=== PATIENT | female | born 1940 | race African-American/Black ===

== ENCOUNTER 2017-08-01 09:07 | Outpatient (CLI) | payer MEDICARE, BC ==
--- NOTE | 2017-08-01 11:47 | MRI ---
MRI LUMBAR SPINE WITHOUT CONTRAST: INDICATIONS: Left hip and back pain for one month. COMPARISON: None. FINDINGS: There is a benign appearing hemangioma within the left posterolateral aspect of L3. There is slight grade 1 anterolisthesis of L4 on L5 and of L3 on L4. The conus is seen to terminate at approximately L1. The visualized retroperitoneum is within normal limits. There are small T2 hyperintensities involvin g both kidneys, likely reflective of small cysts. No acute fracture is evident. There is a small, 7 mm, T1 hypointense, heterogeneous, T2, oval lesion involving the anterior-superior aspect of L5 with no correlating CT abnormality on the CT of the [facility] st and abdomen dated 10/21/2011. At L5-S1 level, there is no appreciable central canal or neural foraminal narrowing. At L4-L5, there is a broad-based bulge, ligamentum flavum hypertrophy, and facet hypertrophy inducing mild central canal narrowing with moderate left and mild right neural foraminal narrowing. At L3-L4, there is a broad-based bulge with ligamentum flavum hypertrophy and facet joint degenerativ e change causing mild central canal narrowing with mild bilateral neural foraminal narrowing. At L2-L3, there is a broad-based bulge with facet hypertrophy inducing mild bilateral neural foramina l narrowing. At L1-L2, there is no appreciable central canal or neural foraminal narrowing. At T12-L1, there is no appreciable central canal or neural foraminal narrowing. IMPRESSION: 1. Multilevel spondylosis of the lumbar spine with mild central canal narrowing seen at L3-L4 and at L4-L5. 2. Neural foraminal narrowing seen at L2-L3 through L4-L5 as above. 3. Small, nonspecific T1 hypointense lesion involving the anterior-superior aspect of L5. This bree ures 7 mm in size. No definite corresponding CT abnormality was seen within this region on compariso n CT in 2011. This may reflect slightly atypical bony hemangioma. Metastatic disease is felt to be less likely, as the patient has no prior history of malignancy. As a conservative measure, would rec ommend a follow-up examination in 1 to 2 months, to document stability. 4. Benign appearing hemangioma within the posterolateral aspect of L3. 5. Small bilateral renal cysts. POS: [facility]
== END 2017-08-01 09:08 | disposition home or self-care (01) ==
LOC: MRI 09:07
PROVIDERS: ATTEND Orthopaedic Surgery
DX: M47.26 Other spondylosis with radiculopathy, lumbar region (principal); M48.061 Spinal stenosis, lumbar region without neurogenic claudication; D18.09 Hemangioma of other sites; N28.1 Cyst of kidney, acquired
CPT/HCPCS: 72148

== ENCOUNTER 2017-08-01 14:24 | Outpatient (CLI) | payer MEDICARE, BC | END 2017-08-01 14:25 | disposition home or self-care (01) | LOC: BICMAMMO 14:24 | PROVIDERS: ATTEND Family Medicine | DX: Z12.31 Encounter for screening mammogram for malignant neoplasm of breast (principal) | CPT/HCPCS: 77063; 77067 ==

== ENCOUNTER 2018-09-07 10:28 | Outpatient (CLI) | payer MEDICARE, BC | END 2018-09-07 10:29 | disposition home or self-care (01) | LOC: BICMAMMO 10:28 | PROVIDERS: ATTEND Family Medicine | DX: Z12.31 Encounter for screening mammogram for malignant neoplasm of breast (principal); R92.1 Mammographic calcification found on diagnostic imaging of breast | CPT/HCPCS: 77063; 77067 ==

== ENCOUNTER 2018-09-20 10:03 | Outpatient (CLI) | payer MEDICARE, BC ==
--- NOTE | 2018-09-20 11:21 | ULT ---
ULTRASOUND RETROPERITONEUM COMPLETE: (RENAL) DATE: 09/20/2018. HISTORY: Chronic kidney disease, N18.2, stage 2. FINDINGS: The right kidney measures 9 x 6 x 7 cm. The left kidney measures 9 x 4.5 x 5.5 cm. Both kidneys hav e normal cortical thickness and normal cortical echogenicity. There is no hydronephrosis. The urina ry bladder is almost empty and therefore cannot be evaluated. There is suboptimal detailed visualiza tion of the renal parenchyma, especially on the right. Previous ultrasound of 11/10/2016 demonstrated some small parenchymal renal cysts, which are difficult to identify on the current study. IMPRESSION: 1) No hydronephrosis. Probably no major interval change since 11/10/2016. 2) Empty bladder. jn [] POS: [facility]
== END 2018-09-20 10:04 | disposition home or self-care (01) ==
LOC: BICULT 10:03
PROVIDERS: ATTEND Internal Medicine Nephrology
DX: N18.2 Chronic kidney disease, stage 2 (mild) (principal)
CPT/HCPCS: 76770

== ENCOUNTER 2019-05-14 08:37 | Outpatient (CLI) | payer MEDICARE, BC ==
--- NOTE | 2019-05-14 09:53 | ULT ---
Pelvic sonogram transabdominal imaging HISTORY: Pelvic pain. FINDINGS: Urinary bladder is incompletely distended. Uterus has a heterogeneous echotexture and is 6. 9 cm. Endometrium is very thin, not well visualized. No free fluid. Neither ovary is visualized with transabdominal imaging. No solid or cystic adnexal masses. IMPRESSION: Normal sonographic appearance of the uterus. Ovaries not well imaged. No mass is visible. No free fluid.
== END 2019-05-14 08:38 | disposition home or self-care (01) ==
LOC: BICULT 08:37
PROVIDERS: ATTEND Internal Medicine Gastroenterology
DX: R10.13 Epigastric pain (principal); R10.30 Lower abdominal pain, unspecified; K21.9 Gastro-esophageal reflux disease without esophagitis; Z80.8 Family history of malignant neoplasm of other organs or systems
CPT/HCPCS: 76856; 93976

== ENCOUNTER 2022-05-06 10:31 | Outpatient (CLI) | payer MEDICARE | END 2022-05-06 10:32 | disposition home or self-care (01) | LOC: BICULT 10:31 | PROVIDERS: ATTEND Family Medicine | DX: E21.3 Hyperparathyroidism, unspecified (principal); E04.1 Nontoxic single thyroid nodule | CPT/HCPCS: 76536 ==

== ENCOUNTER 2022-12-05 10:30 | Outpatient (CLI) | payer MEDICARE | END 2022-12-05 10:31 | disposition home or self-care (01) | LOC: BICMAMMO 10:30 | PROVIDERS: ATTEND Family Medicine | DX: Z12.31 Encounter for screening mammogram for malignant neoplasm of breast (principal); Z78.0 Asymptomatic menopausal state; M81.0 Age-related osteoporosis without current pathological fracture | CPT/HCPCS: 77063; 77067; 77080 ==

== ENCOUNTER 2023-01-17 09:03 | Outpatient (CLI) | payer MEDICARE, OTHER | END 2023-01-17 09:04 | disposition home or self-care (01) | LOC: NM 09:03 | PROVIDERS: ATTEND Internal Medicine Rheumatology | DX: E21.3 Hyperparathyroidism, unspecified (principal) | CPT/HCPCS: 78072; A9500 ==

== ENCOUNTER → 2023-03-08 | Outpatient (CLI) | payer MEDICARE, OTHER | LOC: PET 09:30 | PROVIDERS: ATTEND Internal Medicine | DX: D63.1 Anemia in chronic kidney disease (principal); C90.00 Multiple myeloma not having achieved remission | CPT/HCPCS: 78815; A9552 ==

== ENCOUNTER 2023-04-20 11:18 | Outpatient (CLI) | payer MEDICARE, OTHER | END 2023-04-20 11:19 | disposition home or self-care (01) | LOC: RAD 11:18 | PROVIDERS: ATTEND Family Medicine | DX: R09.89 Other specified symptoms and signs involving the circulatory and respiratory systems (principal) | CPT/HCPCS: 71046 ==

== ENCOUNTER 2023-05-31 12:21 | Emergency (ER) | payer MEDICARE, OTHER ==
[~2023-05-31 12:21] MED LIST: Iopamidol-370 76% 500 ML MDV (1 ML CHARGE) ONE
[2023-05-31] MEDS ORDERED: Ketorolac Tromethamine 30 MG/ML VIAL ONE (13:09)
[2023-05-31 13:46] LABS: #Monocytes 0.6 thou/uL (0.11-0.59); #Neutrophils 5.4 thou/uL (1.40-6.50); %Basophils 0.3 % (0.0-1.0); %Eosinophils 0.2 % (0.0-10.0); %Lymphocytes 4.8 % (21.0-51.0); %Monocytes 9.2 % (0.0-10.0); Hematocrit 27.4 % (36.0-47.0); Hemoglobin 8.7 g/dL (12.0-16.0); Mean Corpuscular HGB CONC 31.8 g/dL (32.0-36.0); Mean Corpuscular Hemoglobin 31.8 pg (27.0-31.0); Mean Platelet Volume 11.9 fL (7.4-10.4); Platelet Count 124 10x3/uL (130-400); RBC Distribution Width 14.1 % (11.5-14.5); Red Blood Cell (RBC) Count 2.74 mill/uL (4.20-5.40); White Blood Cell (WBC) Count 6.3 10x3/uL (4.8-10.8)
[2023-05-31 14:07] LABS: ALT (SGPT) 16 U/L (8-55); AST (SGOT) 15 U/L (5-34); Albumin 3.8 g/dL (3.4-4.8); Alkaline Phosphatase 52 U/L (40-110); Anion Gap 18 mmol/L (10-20); BUN (Urea Nitrogen) 17 mg/dL (9.8-20.1); Bilirubin, Total 0.9 mg/dL (0.2-1.2); Calc. Creatinine Clearance 0 mL/min (70-130); Calcium 9.3 mg/dL (7.8-10.44); Carbon Dioxide 19 mmol/L (23-31); Chloride 107 mmol/L (98-107); Estimated GFR 41; Globulin 2.4 g/dL (2.4-3.5); Glucose 108 mg/dL (83-110); Potassium 3.6 mmol/L (3.5-5.1); Protein, Total 6.2 g/dL (5.8-8.1); Sodium 140 mmol/L (136-145)
== END 2023-05-31 18:25 | disposition home or self-care (01) ==
LOC: ERS 12:21
DX: M54.2 Cervicalgia (principal); M54.9 Dorsalgia, unspecified; M25.512 Pain in left shoulder; M25.511 Pain in right shoulder; E03.9 Hypothyroidism, unspecified; E78.5 Hyperlipidemia, unspecified; I10 Essential (primary) hypertension; Z79.899 Other long term (current) drug therapy; Z79.82 Long term (current) use of aspirin
CPT/HCPCS: 36415; 71275; 72125; 80053; 85025; 85379; 86140; 93005; 96374; J1885; Q9967

== ENCOUNTER 2023-06-27 13:28 | Outpatient (CLI) | payer MEDICARE, OTHER | END 2023-06-27 13:29 | disposition home or self-care (01) | LOC: SCSMRI 13:28 | PROVIDERS: ATTEND Internal Medicine | DX: C90.00 Multiple myeloma not having achieved remission (principal); N18.9 Chronic kidney disease, unspecified; D63.1 Anemia in chronic kidney disease; M51.36 Other intervertebral disc degeneration, lumbar region; Z79.899 Other long term (current) drug therapy | CPT/HCPCS: 72158; 72197 ==

== ENCOUNTER 2023-12-08 09:17 | Outpatient (CLI) | payer MEDICARE | END 2023-12-08 09:18 | disposition home or self-care (01) | LOC: BICMAMMO 09:17 | PROVIDERS: ATTEND Family Medicine | DX: Z12.31 Encounter for screening mammogram for malignant neoplasm of breast (principal); N63.15 Unspecified lump in the right breast, overlapping quadrants; Z85.79 Personal history of other malignant neoplasms of lymphoid, hematopoietic and related tissues | CPT/HCPCS: 77063; 77067 ==

== ENCOUNTER 2023-12-19 12:17 | Day surgery (SDC) | payer MEDICARE ==
[2023-12-19] MEDS: diphenhydrAMINE 25 MG CAP PO SCH (13:10)
[2023-12-19] MEDS ORDERED: diphenhydrAMINE 25 MG CAP ONE (13:10)
[2023-12-19] MEDS ORDERED: Acetaminophen 500 MG TAB ONE (13:10)
[2023-12-19] MEDS: Acetaminophen 500 MG TAB PO SCH (13:11)
[2023-12-19 16:05] VITALS: BP 141/64; TEMP 97.8
== END 2023-12-19 15:59 | disposition home or self-care (01) ==
LOC: ONC/OP 12:17
PROVIDERS: ATTEND Internal Medicine
DX: D64.9 Anemia, unspecified (principal); D69.6 Thrombocytopenia, unspecified
CPT/HCPCS: 36430; 86850; 86900; 86901; 86920; P9016

== ENCOUNTER 2023-12-20 07:57 | Outpatient (CLI) | payer MEDICARE | END 2023-12-20 07:58 | disposition home or self-care (01) | LOC: BICMAMMO 07:57 | PROVIDERS: ATTEND Family Medicine | DX: N63.15 Unspecified lump in the right breast, overlapping quadrants (principal) | CPT/HCPCS: 76642; 77065; G0279 ==

== ENCOUNTER 2023-12-28 10:15 | Outpatient (CLI) | payer MEDICARE | END 2023-12-28 10:16 | LOC: PET 10:15 | PROVIDERS: ATTEND Internal Medicine | DX: C90.00 Multiple myeloma not having achieved remission (principal); C79.51 Secondary malignant neoplasm of bone | CPT/HCPCS: 78815; A9552 ==

== ENCOUNTER 2024-01-12 16:48 | Inpatient (IN) | payer MEDICARE ==
[2024-01-12 17:23] LABS: Hematocrit 21.7 % (36.0-47.0); Hemoglobin 6.9 g/dL (12.0-16.0); Mean Corpuscular HGB CONC 31.8 g/dL (32.0-36.0); Mean Corpuscular Hemoglobin 30.8 pg (27.0-31.0); Mean Corpuscular Volume 96.9 fL (78.0-98.0); Mean Platelet Volume 9.7 fL (7.4-10.4); Platelet Count 53 10x3/uL (130-400); Red Blood Cell (RBC) Count 2.24 mill/uL (4.20-5.40)
[2024-01-12 17:50] LABS: Anisocytosis SLIGHT = 6-15 cells HPF (0-5); Band 2 % (5-11); Lymphocytes 14 % (21-51); Monocytes 7 % (0-10); Neutrophil 77 % (42-75); Ovalocytes SLIGHT = 2-5 cells HPF (0-1); Platelet Adequacy Comment Platelets Decreased; Poikilocytosis SLIGHT = 6-15 cells HPF (0-5)
[2024-01-12 21:44] VITALS: BMI 22.7
[2024-01-12] MEDS ORDERED: Dexamethasone 4 MG TAB PO SCH (23:45)
[2024-01-12] MEDS ORDERED: Ondansetron PF 4 MG/2 ML Vial IVP PRN (23:53)
[2024-01-12] MEDS ORDERED: Ondansetron ODT 4 MG TAB PO PRN (23:53)
[2024-01-12] MEDS ORDERED: Acetaminophen 325 MG TAB PO PRN (23:53)
[2024-01-13 05:49] LABS: Anion Gap 12 mmol/L (10-20); BUN (Urea Nitrogen) 25 mg/dL (9.8-20.1); Calc. Creatinine Clearance 21 mL/min (70-130); Calcium 10.3 mg/dL (7.8-10.44); Carbon Dioxide 23 mmol/L (23-31); Chloride 110 mmol/L (98-107); Estimated GFR 28; Glucose 162 mg/dL (83-110); Potassium 3.7 mmol/L (3.5-5.1); Sodium 141 mmol/L (136-145)
[2024-01-13] MEDS: Levothyroxine Sodium 75 MCG TAB PO SCH (06:22)
[2024-01-13 06:37] LABS: #Basophils Less than 0.03 10x3/uL (0.0-0.2); #Eosinphils Less than 0.03 10x3/uL (0.0-0.7); %Lymphocytes 16.1 % (21.0-51.0); %Monocytes 10.6 % (0.0-10.0); %Neutrophils 71.8 % (42.0-75.0); Hematocrit 21.6 % (36.0-47.0); Hemoglobin 6.9 g/dL (12.0-16.0); Mean Corpuscular HGB CONC 31.9 g/dL (32.0-36.0); Mean Corpuscular Hemoglobin 30.7 pg (27.0-31.0); Mean Platelet Volume 10.6 fL (7.4-10.4); Platelet Count 55 10x3/uL (130-400); RBC Distribution Width 19.5 % (11.5-14.5); Red Blood Cell (RBC) Count 2.25 mill/uL (4.20-5.40)
[2024-01-13] MEDS: Lisinopril 10 MG TAB PO SCH (09:31)
[2024-01-13] MEDS: Pantoprazole DR 40 MG TAB PO SCH (09:31)
[2024-01-13] MEDS: valACYclovir 500 MG TAB PO SCH (09:32)
[2024-01-13] MEDS: Amlodipine 5 MG TAB PO SCH (09:32)
[2024-01-13] MEDS: Rosuvastatin 20 MG TAB PO SCH (20:42)
[2024-01-13] MEDS: Acetaminophen/Codeine 30-300mg Tablet PO PRN (23:32)
[2024-01-14 05:11] LABS: Hematocrit 26.6 % (36.0-47.0); Hemoglobin 8.8 g/dL (12.0-16.0); Mean Corpuscular HGB CONC 33.1 g/dL (32.0-36.0); Mean Corpuscular Hemoglobin 30.4 pg (27.0-31.0); Mean Platelet Volume 11.2 fL (7.4-10.4); Platelet Count 51 10x3/uL (130-400); Red Blood Cell (RBC) Count 2.89 mill/uL (4.20-5.40)
[2024-01-14 05:36] LABS: Anion Gap 16 mmol/L (10-20); BUN (Urea Nitrogen) 24 mg/dL (9.8-20.1); Calc. Creatinine Clearance 24 mL/min (70-130); Carbon Dioxide 21 mmol/L (23-31); Chloride 109 mmol/L (98-107); Estimated GFR 32; Glucose 92 mg/dL (83-110); Potassium 3.1 mmol/L (3.5-5.1); Sodium 143 mmol/L (136-145)
[2024-01-14 05:43] LABS: Anisocytosis SLIGHT = 6-15 cells HPF (0-5); Lymphocytes 17 % (21-51); Monocytes 13 % (0-10); Neutrophil 70 % (42-75); Platelet Adequacy Comment Platelets Decreased; Smudge Cells 8.9 %
[2024-01-14] MEDS ORDERED: Electrolyte Replacement Protocol 1 EACH FS SCH (07:41)
[2024-01-14] MEDS: Potassium Chloride 20 MEQ TAB PO SCH (08:46)
[2024-01-14] MEDS ORDERED: RISEDRONATE SODIUM 35 MG PO SCH (09:00)
[2024-01-14 13:42] LABS: Potassium 3.6 mmol/L (3.5-5.1)
[2024-01-14 14:16] VITALS: BP 141/69; TEMP 98.1
== END 2024-01-14 14:55 | disposition home or self-care (01) | DRG 842 ==
LOC: ERS 16:48 → MSONC 20:16 → OBSVTOIN 01-14 10:09
PROVIDERS: ADMIT Student in an Organized Health Care Education/Training Program; ATTEND Internal Medicine
PROC: 30233N1 Transfusion of Nonautologous Red Blood Cells into Peripheral Vein, Percutaneous Approach (ICD-10-PCS; principal; 2024-01-13)
DX: C90.00 Multiple myeloma not having achieved remission (principal); I10 Essential (primary) hypertension; D69.6 Thrombocytopenia, unspecified; E03.9 Hypothyroidism, unspecified; E78.5 Hyperlipidemia, unspecified; E55.9 Vitamin D deficiency, unspecified; D64.81 Anemia due to antineoplastic chemotherapy; Z79.890 Hormone replacement therapy; Z79.899 Other long term (current) drug therapy; Z98.890 Other specified postprocedural states
CPT/HCPCS: 36415; 36430; 80048; 85025; 86850; 86870; 86880; 86900; 86901; 86905; 86922; 86970; 86972; 99284; P9016

== ENCOUNTER 2024-01-31 10:02 | Day surgery (SDC) | payer MEDICARE ==
[2024-01-31] MEDS ORDERED: Acetaminophen 500 MG TAB ONE (10:33)
[2024-01-31] MEDS ORDERED: diphenhydrAMINE 25 MG CAP ONE (10:33)
[2024-01-31] MEDS: diphenhydrAMINE 25 MG CAP PO SCH (10:35)
[2024-01-31] MEDS: Acetaminophen 500 MG TAB PO SCH (10:35)
[2024-01-31 14:53] VITALS: BP 131/63; TEMP 97.8
== END 2024-01-31 14:15 | disposition home or self-care (01) ==
LOC: ONC/OP 10:02
PROVIDERS: ATTEND Internal Medicine Hematology & Oncology
DX: D64.9 Anemia, unspecified (principal); D69.6 Thrombocytopenia, unspecified
CPT/HCPCS: 36430; 86850; 86870; 86900; 86901; 86902; 86904; 86920; 86922; P9016; P9035

== ENCOUNTER 2024-02-06 00:58 | Inpatient (IN) | payer MEDICARE ==
[2024-02-06 02:06] LABS: INR-International Normal Ratio 1.3; PTT 38.1 sec (22.9-36.1); Prothrombin Time 16.1 sec (12.0-14.7)
[2024-02-06 02:10] LABS: Hematocrit 26.6 % (36.0-47.0); Hemoglobin 8.5 g/dL (12.0-16.0); Mean Corpuscular Hemoglobin 30.2 pg (27.0-31.0); Mean Corpuscular Volume 94.7 fL (78.0-98.0); Mean Platelet Volume 10.8 fL (7.4-10.4); Platelet Count 24 10x3/uL (130-400); RBC Distribution Width 20.4 % (11.5-14.5); Red Blood Cell (RBC) Count 2.81 mill/uL (4.20-5.40)
[2024-02-06 02:23] LABS: Troponin I 0.232 ng/mL (< 0.028)
[2024-02-06 02:32] LABS: Chloride 112 mmol/L (98-107); Potassium 3.6 mmol/L (3.5-5.1); Sodium 144 mmol/L (136-145)
[2024-02-06 02:33] LABS: Albumin 2.9 g/dL (3.4-4.8); Calcium 11.3 mg/dL (7.8-10.44); Glucose 102 mg/dL (83-110)
[2024-02-06 02:34] LABS: Globulin 2.4 g/dL (2.4-3.5); Protein, Total 5.3 g/dL (5.8-8.1)
[2024-02-06 02:35] LABS: Anion Gap 16 mmol/L (10-20); Carbon Dioxide 20 mmol/L (23-31)
[2024-02-06 02:36] LABS: Bilirubin, Total 1.2 mg/dL (0.2-1.2)
[2024-02-06 02:37] LABS: Alkaline Phosphatase 85 U/L (40-110)
[2024-02-06 02:38] LABS: BUN (Urea Nitrogen) 48 mg/dL (9.8-20.1); Band 1 % (5-11); Calc. Creatinine Clearance 0 mL/min (70-130); Elliptocytes SLIGHT = 2-5 cells HPF (0-1); Estimated GFR 20; Hypochromia SLIGHT = 6-15 cells HPF (0-5); Large Platelets 0.9 % (0-5); Lymphocytes 13 % (21-51); Monocytes 5 % (0-10); Neutrophil 32 % (42-75); Nucleated RBC (Manual Ct) 2 % (0); Platelet Adequacy Comment Platelets Decreased; Polychromasia SLIGHT = 2-3 cells HPF (0-2)
[2024-02-06 02:39] LABS: ALT (SGPT) 19 U/L (8-55); AST (SGOT) 38 U/L (5-34)
[2024-02-06 03:36] LABS: Influenza A by NAA Not Detected (NotDetected); Influenza B by NAA Not Detected (NotDetected); SARS-CoV-2 NAA Rapid Test Not Detected (NotDetected)
[2024-02-06] MEDS ORDERED: Aspirin Chewable 81 MG TAB ONE (05:05)
[2024-02-06 07:39] LABS: Critical Call Chem Troponin I RESULT DECREASING; Troponin I 0.229 ng/mL (< 0.028)
[2024-02-06] MEDS ORDERED: Furosemide 40 MG (4 mL) VIAL ONE (08:15)
[2024-02-06] MEDS ORDERED: Enoxaparin 30 MG (0.3 mL) SYRINGE ONE (08:15)
[2024-02-06] MEDS ORDERED: Vancomycin 1 GM/200 ML (FROZEN) BAG ONE (08:16)
[2024-02-06] MEDS ORDERED: Enoxaparin 60 MG (0.6 mL) SYRINGE ONE (08:25)
[2024-02-06] MEDS ORDERED: Cefepime 2 GM VIAL ONE (10:55)
[2024-02-06 12:06] LABS: Anion Gap 16 mmol/L (10-20); BUN (Urea Nitrogen) 46 mg/dL (9.8-20.1); Calc. Creatinine Clearance 0 mL/min (70-130); Calcium 10.8 mg/dL (7.8-10.44); Carbon Dioxide 23 mmol/L (23-31); Chloride 112 mmol/L (98-107); Estimated GFR 23; Glucose 98 mg/dL (83-110); Potassium 3.8 mmol/L (3.5-5.1); Sodium 147 mmol/L (136-145)
[2024-02-06 12:38] LABS: Critical Call Chem Troponin I RESULT DECREASING; Troponin I 0.215 ng/mL (< 0.028)
[2024-02-06 16:05] VITALS: BMI 21.4
[2024-02-06] MEDS: LevoFLOXacin 750 mg/D5W 750 MG in Premix 1 BAG IVPB SCH (17:28)
[2024-02-06] MEDS: Cefepime 2 GM in Sodium Chloride 0.9% 100 ML IVPB SCH (17:29)
[2024-02-06] MEDS: Pantoprazole DR 40 MG TAB PO SCH (17:29)
[2024-02-07] MEDS: LevoFLOXacin 750 mg/D5W 750 MG in Premix 1 BAG IVPB SCH (01:13)
[2024-02-07] MEDS: Aspirin 81 mg Enteric Coated Tablet PO SCH (09:29)
[2024-02-07 15:31] LABS: Anion Gap 13 mmol/L (10-20); BUN (Urea Nitrogen) 50 mg/dL (9.8-20.1); Calc. Creatinine Clearance 16 mL/min (70-130); Calcium 11.3 mg/dL (7.8-10.44); Carbon Dioxide 23 mmol/L (23-31); Chloride 113 mmol/L (98-107); Estimated GFR 21; Glucose 92 mg/dL (83-110); Potassium 3.9 mmol/L (3.5-5.1); Sodium 145 mmol/L (136-145)
[2024-02-07 15:40] LABS: Hematocrit 24.3 % (36.0-47.0); Hemoglobin 7.7 g/dL (12.0-16.0); Mean Corpuscular HGB CONC 31.7 g/dL (32.0-36.0); Mean Corpuscular Hemoglobin 30.6 pg (27.0-31.0); Mean Corpuscular Volume 96.4 fL (78.0-98.0); Mean Platelet Volume 9.4 fL (7.4-10.4); Platelet Count 20 10x3/uL (130-400); RBC Distribution Width 20.6 % (11.5-14.5); Red Blood Cell (RBC) Count 2.52 mill/uL (4.20-5.40)
[2024-02-07 15:48] LABS: Anisocytosis MARKED = >30 cells HPF (0-5); Band 3 % (5-11); Burr Cells SLIGHT = 2-5 cells HPF (0-1); Eosinophils 1 % (0-10); Hypochromia SLIGHT = 6-15 cells HPF (0-5); Lymphocytes 19 % (21-51); Macrocytosis MODERATE=16-30 cells HPF (0-5); Metamyelocyte 1 % (0-0); Monocytes 1 % (0-10); Neutrophil 56 % (42-75); Nucleated RBC (Manual Ct) 3 % (0); Ovalocytes MODERATE= 6-15 cells HPF (0-1); Plasma Cells 1 % (0-0); Platelet Adequacy Comment Significant Decrease; Polychromasia SLIGHT = 2-3 cells HPF (0-2); Reactive Lymphocytes 19 % (0-10); Schistocytes SLIGHT = 2-5 cells HPF (0-1)
[2024-02-07] MEDS: methylPREDNISolone Sod Succ 40 MG VIAL IVP SCH (17:06)
[2024-02-07] MEDS: Sodium Chloride 0.45% 1,000 ML IV SCH (17:07)
[2024-02-07] MEDS: traMADol HCl 50 MG TAB PO PRN (20:33)
[2024-02-07] MEDS: Cefepime 1 GM in Sodium Chloride 0.9% 100 ML IVPB SCH (20:34)
[2024-02-07] MEDS: Acetaminophen 325 MG TAB PO PRN (22:28)
[2024-02-08 05:01] LABS: Hematocrit 24.7 % (36.0-47.0); Hemoglobin 7.6 g/dL (12.0-16.0); Mean Corpuscular HGB CONC 30.8 g/dL (32.0-36.0); Mean Corpuscular Hemoglobin 29.8 pg (27.0-31.0); Mean Corpuscular Volume 96.9 fL (78.0-98.0); Platelet Count 22 10x3/uL (130-400); RBC Distribution Width 20.6 % (11.5-14.5); Red Blood Cell (RBC) Count 2.55 mill/uL (4.20-5.40)
[2024-02-08 05:04] LABS: Anion Gap 15 mmol/L (10-20); BUN (Urea Nitrogen) 53 mg/dL (9.8-20.1); Calc. Creatinine Clearance 15 mL/min (70-130); Calcium 11.3 mg/dL (7.8-10.44); Carbon Dioxide 20 mmol/L (23-31); Chloride 112 mmol/L (98-107); Estimated GFR 20; Glucose 109 mg/dL (83-110); Potassium 4.1 mmol/L (3.5-5.1); Sodium 143 mmol/L (136-145)
[2024-02-08 05:34] LABS: Band 10 % (5-11); Hypochromia SLIGHT = 6-15 cells HPF (0-5); Large Platelets 1.9 % (0-5); Lymphocytes 14 % (21-51); Monocytes 3 % (0-10); Neutrophil 55 % (42-75); Nucleated RBC (Manual Ct) 3 % (0); Platelet Adequacy Comment Significant Decrease; Polychromasia SLIGHT = 2-3 cells HPF (0-2); Reactive Lymphocytes 2 % (0-10)
[2024-02-08] MEDS: LevoFLOXacin 500 mg/D5W 500 MG in Premix 1 BAG IVPB SCH (09:13)
[2024-02-08] MEDS: Bisacodyl 5 MG TAB PO PRN (17:10)
[2024-02-09 04:33] LABS: Hemoglobin 7.3 g/dL (12.0-16.0); Mean Corpuscular HGB CONC 29.2 g/dL (32.0-36.0); Mean Corpuscular Hemoglobin 29.9 pg (27.0-31.0); Mean Corpuscular Volume 102.5 fL (78.0-98.0); Mean Platelet Volume 9.9 fL (7.4-10.4); Platelet Count 29 10x3/uL (130-400); RBC Distribution Width 20.9 % (11.5-14.5); Red Blood Cell (RBC) Count 2.44 mill/uL (4.20-5.40)
[2024-02-09 04:40] LABS: Anion Gap 17 mmol/L (10-20); BUN (Urea Nitrogen) 67 mg/dL (9.8-20.1); Calc. Creatinine Clearance 14 mL/min (70-130); Calcium 10.7 mg/dL (7.8-10.44); Carbon Dioxide 16 mmol/L (23-31); Chloride 110 mmol/L (98-107); Estimated GFR 18; Glucose 105 mg/dL (83-110); Potassium 4.7 mmol/L (3.5-5.1); Sodium 138 mmol/L (136-145)
[2024-02-09 05:19] LABS: Anisocytosis SLIGHT = 6-15 cells HPF (0-5); Band 2 % (5-11); Burr Cells SLIGHT = 2-5 cells HPF (0-1); Eosinophils 1 % (0-10); Large Platelets 2.7 % (0-5); Lymphocytes 15 % (21-51); Macrocytosis SLIGHT = 6-15 cells HPF (0-5); Monocytes 5 % (0-10); Neutrophil 56 % (42-75); Nucleated RBC (Manual Ct) 6 % (0); Platelet Adequacy Comment Significant Decrease; Poikilocytosis SLIGHT = 6-15 cells HPF (0-5); Polychromasia SLIGHT = 2-3 cells HPF (0-2); Reactive Lymphocytes 7 % (0-10); Schistocytes SLIGHT = 2-5 cells HPF (0-1); Smudge Cells 14.5 %
[2024-02-09] MEDS: Senokot S 8.6-50 MG TAB PO PRN (08:40)
[2024-02-09] MEDS ORDERED: Ventilator Sedation Protocol 1 EACH FS SCH (14:43)
[2024-02-09] MEDS ORDERED: Fentanyl BOLUS 250 ML IVPB PRN (15:00)
[2024-02-09] MEDS ORDERED: Propofol BOLUS 1,000 MG/100 ML VIAL IV PRN (15:00)
[2024-02-09] MEDS ORDERED: DISCONTINUE PREVIOUS NARCOTIC PAIN MEDICATIONS AND BENZODIAZEPINES FS SCH (15:00)
[2024-02-09] MEDS ORDERED: Propofol 1,000 MG/100 ML VIAL IV PRN (15:00)
[2024-02-09] MEDS ORDERED: Lorazepam 2 MG/ML VIAL SLOW IVP PRN (15:00)
[2024-02-09 15:45] LABS: Base Excess (BEa) -5.4 mEq/L (-2.0 to +3.0); CO2 Tension 31.9 mmHg (35.0-45.0); Calcium, Ionized (arterial) 1.37 mmol/L (1.12-1.30); Carboxyhemoglobin (COHb) 1.2 gm% (0.0-3.0); Hematocrit-ABG 20 % (36.0-47.0); Hemoglobin (Hb) 6.9 g/dL (12.0-16.0); O2 Tension (PaO2), arterial 365.2 mmHg (> 60.0); Potassium - ABG Lab 4.12 mmol/L (3.70-5.30); pH, Arterial 7.392 (7.35-7.45)
[2024-02-09 15:48] LABS: ALV-art Gradient 307.925 mmHg (0-20); Puncture Site RRA
[2024-02-09] MEDS: Fentanyl CADD 100 ML IV SCH (16:26)
[2024-02-09] MEDS: methylPREDNISolone Sod Succ 40 MG VIAL IVP SCH (21:58)
[2024-02-10] MEDS: Sodium Bicarb 50 MEQ/50 ML Abboject 8.4% SYRINGE IVP SCH (01:21)
[2024-02-10] MEDS: Sodium Chloride 0.9% 500 ML IV SCH ×2 (01:31→05:45)
[2024-02-10 05:56] LABS: Anion Gap 18 mmol/L (10-20); BUN (Urea Nitrogen) 74 mg/dL (9.8-20.1); Calc. Creatinine Clearance 15 mL/min (70-130); Carbon Dioxide 16 mmol/L (23-31); Chloride 109 mmol/L (98-107); Estimated GFR 18; Glucose 94 mg/dL (83-110); Magnesium 2.2 mg/dL (1.6-2.6); Potassium 4.5 mmol/L (3.5-5.1); Sodium 138 mmol/L (136-145)
[2024-02-10 06:57] LABS: Hematocrit 25.4 % (36.0-47.0); Hemoglobin 8.3 g/dL (12.0-16.0); Mean Corpuscular HGB CONC 32.7 g/dL (32.0-36.0); Mean Corpuscular Hemoglobin 30.4 pg (27.0-31.0); Platelet Count 13 10x3/uL (130-400); RBC Distribution Width 19.4 % (11.5-14.5); Red Blood Cell (RBC) Count 2.73 mill/uL (4.20-5.40)
[2024-02-10 07:54] LABS: Actual Bicarbonate (HCO3a) 19.4 mEq/L (22-28); Base Excess (BEa) -3.1 mEq/L (-2.0 to +3.0); CO2 Tension 25.5 mmHg (35.0-45.0); Calcium, Ionized (arterial) 1.32 mmol/L (1.12-1.30); Carboxyhemoglobin (COHb) 0.3 gm% (0.0-3.0); Hematocrit-ABG 24 % (36.0-47.0); Hemoglobin (Hb) 8.2 g/dL (12.0-16.0); Potassium - ABG Lab 3.95 mmol/L (3.70-5.30); pH, Arterial 7.499 (7.35-7.45)
[2024-02-10 07:54] LABS: Anisocytosis SLIGHT = 6-15 cells HPF (0-5); Band 7 % (5-11); Burr Cells SLIGHT = 2-5 cells HPF (0-1); Lymphocytes 7 % (21-51); Metamyelocyte 1 % (0-0); Monocytes 4 % (0-10); Neutrophil 62 % (42-75); Nucleated RBC (Manual Ct) 4 % (0); Ovalocytes SLIGHT = 2-5 cells HPF (0-1); Platelet Adequacy Comment Significant Decrease; Poikilocytosis SLIGHT = 6-15 cells HPF (0-5); Polychromasia SLIGHT = 2-3 cells HPF (0-2); Reactive Lymphocytes 2 % (0-10); Schistocytes SLIGHT = 2-5 cells HPF (0-1)
[2024-02-10 07:56] LABS: Puncture Site RRA
[2024-02-10 07:57] LABS: ALV-art Gradient 112.675 mmHg (0-20)
[2024-02-10] MEDS: Morphine 2 MG/ML VIAL SLOW IVP PRN (18:33)
[2024-02-11 01:38] VITALS: BP 129/53; TEMP 97.7
[2024-02-12 11:38] LABS: Kappa Lambda Light Chain Ratio Note: (0.26-1.65); Kappa Light Chains Note: mg/L (3.3-19.4)
[2024-02-12 15:15] LABS: A/G Ratio 1.2 (0.7-1.7); Albumin 2.8 g/dL (2.9-4.4); Alpha 1 0.4 g/dL (0.0-0.4); Alpha 2 0.8 g/dL (0.4-1.0); Beta 0.9 g/dL (0.7-1.3); Gamma 0.3 g/dL (0.4-1.8); Globulin, Total 2.3 g/dL (2.2-3.9); M-Spike 0.1 g/dL (Not Observed); Protein Electrophoresis Intrp Note: (.)
== END 2024-02-11 02:08 | disposition expired | DRG 208 ==
LOC: ERS 00:58 → ERHOLD 06:34 → 2NO 15:49 → CCU 02-09 14:41 → T4-A 02-10 16:43
PROVIDERS: ADMIT Student in an Organized Health Care Education/Training Program; ATTEND Internal Medicine
PROC: 3E03329 Introduction of Other Anti-infective into Peripheral Vein, Percutaneous Approach (ICD-10-PCS; 2024-02-06)
PROC: 5A1935Z Respiratory Ventilation, Less than 24 Consecutive Hours (ICD-10-PCS; 2024-02-09)
PROC: 4A133R1 Monitoring of Arterial Saturation, Peripheral, Percutaneous Approach (ICD-10-PCS; 2024-02-09)
PROC: 0BH17EZ Insertion of Endotracheal Airway into Trachea, Via Natural or Artificial Opening (ICD-10-PCS; 2024-02-09)
PROC: 30233R1 Transfusion of Nonautologous Platelets into Peripheral Vein, Percutaneous Approach (ICD-10-PCS; principal; 2024-02-10)
PROC: 30233N1 Transfusion of Nonautologous Red Blood Cells into Peripheral Vein, Percutaneous Approach (ICD-10-PCS; 2024-02-10)
DX: J18.9 Pneumonia, unspecified organism (principal); D61.810 Antineoplastic chemotherapy induced pancytopenia; E43 Unspecified severe protein-calorie malnutrition; J96.01 Acute respiratory failure with hypoxia; G93.41 Metabolic encephalopathy; C90.00 Multiple myeloma not having achieved remission; N17.9 Acute kidney failure, unspecified; R64 Cachexia; I47.21 Torsades de pointes; E87.20 Acidosis, unspecified; E87.3 Alkalosis; I31.39 Other pericardial effusion (noninflammatory); Z68.22 Body mass index [BMI] 22.0-22.9, adult; Z66 Do not resuscitate; I46.9 Cardiac arrest, cause unspecified; Z51.5 Encounter for palliative care; E03.9 Hypothyroidism, unspecified; E78.5 Hyperlipidemia, unspecified; N18.30 Chronic kidney disease, stage 3 unspecified; R77.8 Other specified abnormalities of plasma proteins; D69.6 Thrombocytopenia, unspecified; E83.52 Hypercalcemia; R53.81 Other malaise; D63.8 Anemia in other chronic diseases classified elsewhere; E87.70 Fluid overload, unspecified; I12.9 Hypertensive chronic kidney disease with stage 1 through stage 4 chronic kidney disease, or unspecified chronic kidney disease; T45.1X5A Adverse effect of antineoplastic and immunosuppressive drugs, initial encounter; Z79.890 Hormone replacement therapy; Z79.899 Other long term (current) drug therapy; Z98.890 Other specified postprocedural states; Z78.1 Physical restraint status
CPT/HCPCS: 36415; 36416; 36430; 36600; 71045; 71250; 74177; 74230; 80048; 80053; 82805; 83605; 83735; 83880; 83883; 84155; 84165; 84443; 84484; 85025; 85060; 85610; 85730; 86850; 86870; 86900; 86901; 86922; 87040; 93005; 93010; 93306; 94002; 94003; 96365; 96367; 96375; J0692; J1650; J1940; J1956; J2272; J2920; J3010; J3370-JW; J3490; J7030; P9016; P9035